=== PATIENT | female | born 1965 | race Caucasian/White ===

== ENCOUNTER 2023-04-20 19:30 | Emergency (ER) | payer OTHER ==
[2023-04-20 19:45] VITALS: BP 149/92; PULSE 74; RESP 18; TEMP 98.7; BMI 25.3
[2023-04-20] MEDS ORDERED: KETOROLAC TROMETHAMINE 30 MG/1 ML VIAL IM ONE (20:49)
== END 2023-04-20 22:30 | disposition home or self-care (01) ==
LOC: JERFT 19:30
PROC: 3E0233Z Introduction of Anti-inflammatory into Muscle, Percutaneous Approach (ICD-10-PCS; principal; 2023-04-20)
DX: M54.9 Dorsalgia, unspecified (principal); M54.50 Low back pain, unspecified
CPT/HCPCS: 99284-25